=== PATIENT | female | born 1960 | race Caucasian/White ===

== ENCOUNTER → 2022-04-02 10:36 | Outpatient (CLI) | payer OTHER, SELFPAY ==
--- NOTE | ~2022-04-02 | MM_ITS ---
EXAMINATION: MM screening [place] BI w jayson HISTORY: Screening mammogram TECHNIQUE: Craniocaudal and mediolateral oblique 3-D tomosynthesis images were obtained and synthetic 2-D images were generated. CAD analysis was submitted and interpreted. COMPARISON: 07/22/2013 bilateral screening mammogram BREAST PARENCHYMAL COMPOSITION: There are scattered areas of fibroglandular density. FINDINGS: There is no evidence of suspicious mass, calcification, or architectural distortion to sugg est malignancy in either breast. There has been no suspicious interval change. IMPRESSION: 1. No mammographic evidence of malignancy. 2. Recommend routine screening mammography in one year. BI-RADS Category 1: Negative Reviewed, dictated and finalized at location A. 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
== END ==
PROVIDERS: PCP Family Medicine; Visit Provider Family Medicine
DX: Z12.31 Encounter for screening mammogram for malignant neoplasm of breast (principal)
CPT/HCPCS: 77063; 77067

== ENCOUNTER 2023-06-10 12:11 | Emergency (ER) | payer OTHER, SELFPAY ==
--- NOTE | ~2023-06-10 | CT_ITS ---
EXAMINATION: CT brain wo con DATE: 06/10/2023 13:02 INDICATION: Fall. TECHNIQUE: Computed tomography (CT) of the head was performed without intravenous contrast. The mA wa s adjusted according to patient size. Iterative reconstruction technique was employed. The dose-lengt h product was 605.33 mGy-cm. COMPARISON: None FINDINGS: There is no intracranial hemorrhage, acute infarction, or abnormal intracranial mass lesion . The ventricles are normal in size. The orbits are normal. There is mucosal thickening in the parana james sinuses. The mastoid air cells are normal. IMPRESSION: 1. Normal brain. Reviewed, dictated and finalized at location A. 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 Normal brain.
--- NOTE | ~2023-06-10 | XR_ITS ---
EXAMINATION: XR chest 2V DATE: 06/10/2023 13:08 INDICATION: Left chest pain. TECHNIQUE: Frontal and lateral views of the chest were obtained. COMPARISON: None. FINDINGS: There is no pneumonia, pleural effusion, or pneumothorax. The heart size is normal. IMPRESSION: 1. No acute cardiopulmonary disease. Reviewed, dictated and finalized at location A. ERN CLERK
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
[2023-06-10 12:13] VITALS: BP 152/76; PULSE 64; RESP 20; TEMP 36.3; O2SAT 100
--- NOTE | 2023-06-10 12:45 | ED.FALL ---
HPI - Fall General Chief Complaint: Fall Stated Complaint: Fall, hit head Time Seen by Provider: 06/10/23 12:21 History of Present Illness HPI Narrative: 63-year-old female presenting to the emergency department for evaluation after having a ground level fall. Patient reports he tripped over a mat at work causing her to strike her face and left-sided ribs. Patient denies any loss conscious. Patient did have some epistaxis afterwards. Related Data Allergies Allergy/AdvReac Type Severity Reaction Status Date / Time No Known Allergies Allergy Unverified 04/22/16 19:04 Review of Systems Review of Systems: All systems reviewed & are unremarkable except as noted in HPI and below Exam Narrative: APPEARANCE: Well appearing, no pain, no distress, well-nourished. HEAD: normocephalic, atraumatic. EYES: PERRLA/EOMI, conjunctivae clear. NOSE: Normal no drainage EARS:TMS clear with good light reflex. THROAT: Pharynx clear, no exudate. NECK: Supple. No adenopathy, no masses. RESPIRATORY: Airway patent, respirations nonlabored. Clear to auscultation bilaterally, no rales, rhonchi, wheezing. CARDIOVASCULAR: Regular rate and rhythm without murmurs rubs or gallops. ABDOMINAL: Soft, nontender, nondistended, normal bowel sounds MUSCULOSKELETAL: Left-sided chest wall tenderness to palpation without crepitus or ecchymosis NEURO: Alert. Cranial nerves II through XII intact. Good gait. Good coordination SKIN: Warm, dry. Normal Color Course Course Emergency Course: 63-year-old female presents to emergency department for evaluation after having a fall resulting in a nasal injury. Head CT and facial CT were negative for acute fractures, chest x-ray showed no evidence rib fractures. Patient was updated on treatment for rib contusions and she was also educated on reasons to return to the emergency department. All questions concerns were addressed patient was well-appearing at time of discharge. Vital Signs Vital signs: Vital Signs Temperature 97.3 F L 06/10/23 12:13 Pulse Rate 64 06/10/23 12:13 Respiratory Rate 20 06/10/23 12:13 Blood Pressure 152/76 H 06/10/23 12:13 Pulse Oximetry 100 06/10/23 12:13 Oxygen Delivery Room Air 06/10/23 12:13 Temperature 97.3 F L 06/10/23 12:13 Pulse Rate 64 06/10/23 12:13 Respiratory Rate 20 06/10/23 12:13 Blood Pressure 152/76 H 06/10/23 12:13 Pulse Oximetry 100 06/10/23 12:13 Oxygen Delivery Room Air 06/10/23 12:13 MDM - Fall Imaging Data Radiologist's impression: Impressions Head CT 06/10/23 13:03 IMPRESSION: 1. Normal brain. Face CT 06/10/23 13:11 IMPRESSION: 1. No fracture. Chest X-Ray 06/10/23 13:15 IMPRESSION: 1. No acute cardiopulmonary disease. Discharge Plan Discharge Clinical Impression: Contusion of nose, Contusion of rib Patient Disposition: Home, Self-Care Condition: Stable Instructions: Antibiotic Form, Rib Fracture (ED), Concussion (ED), Head Injury (ED), Contusion in Adults (ED) Additional Instructions: Tylenol and ibuprofen for pain control. Have close follow-up with your primary care physician. If you have any worsening symptoms then please call or return to the emergency department. Follow-up/Referrals: Julissa,Haley Hodges MD [Primary Care Provider] -
== END 2023-06-10 13:56 | disposition home or self-care (01) ==
PROVIDERS: Emergency Provider Emergency Medicine; PCP Family Medicine
DX: S00.33XA Contusion of nose, initial encounter (principal); S20.212A Contusion of left front wall of thorax, initial encounter; W01.0XXA Fall on same level from slipping, tripping and stumbling without subsequent striking against object, initial encounter
CPT/HCPCS: 70450; 70486; 71046; 99284

== ENCOUNTER 2024-05-03 10:58 | Emergency (ER) | payer OTHER, SELFPAY ==
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
[2024-05-03 11:09] VITALS: BP 128/76; PULSE 74; RESP 18; TEMP 36.4; O2SAT 100
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
[2024-05-03 13:59] VITALS: BP 130/72; PULSE 75; RESP 16; O2SAT 100
== END 2024-05-03 14:01 | disposition home or self-care (01) ==
PROVIDERS: Emergency Provider Student in an Organized Health Care Education/Training Program; PCP Family Medicine
DX: S62.613A Displaced fracture of proximal phalanx of left middle finger, initial encounter for closed fracture (principal); R07.89 Other chest pain; V49.20XA Unspecified car occupant injured in collision with unspecified motor vehicles in nontraffic accident, initial encounter
CPT/HCPCS: 29130; 71100; 73130; 99284

== ENCOUNTER 2024-05-11 10:17 | Outpatient (CLI) | payer OTHER, SELFPAY ==
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
== END 2024-05-11 10:18 | disposition home or self-care (01) ==
PROVIDERS: PCP Family Medicine; Visit Provider Orthopaedic Surgery
DX: S62.613A Displaced fracture of proximal phalanx of left middle finger, initial encounter for closed fracture (principal); X58.XXXA Exposure to other specified factors, initial encounter
CPT/HCPCS: 73130

== ENCOUNTER 2024-06-15 06:51 | Outpatient (CLI) | payer OTHER, SELFPAY ==
--- NOTE | ~2024-06-15 | XR_ITS ---
Left Hand Technique: PA, oblique, and lateral views were obtained. Clinical History: Fracture COMPARISON: 725 Findings: Oblique intra-articular fracture at the base of the third proximal phalanx is unchanged in alignment. No new fracture seen. Joint spaces are preserved. Soft tissues are unremarkable. Impression: Stable oblique, intra-articular, mildly displaced fracture of the ulnar aspect of the base of the thi rd proximal phalanx. Reviewed, dictated and finalized at location M. SFORMATION COACH Impression: Stable oblique, intra-articular, mildly displaced fracture of the ulnar aspect of the base of the third proximal phalanx.
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
--- OUTSIDE RECORDS SUMMARY | 2024-06-15 06:54 | XMS_ITS | Data Portability ---
Author Organization [place] - [facility] [employer], Main Office Address [address] [place] [address] Assessment No assessment recorded. Plan of Treatment Reminders Order Date Submit Date Provider Last Modified By Organization Details Last Modified Time Details Appointments None record ed. Lab None record ed. Referral None record ed. Procedures None record ed. Surgeries None record ed. Imaging None record ed. Medication Orders None record ed. Patient TargetsNo targets recorded. Patient InstructionsNo instructions recorded. Reason for Referral None Reported. Results Created Date Observation Date Name Description Value Unit Range Abnormal Flag Note LastModifiedBy Organization Detail LastModifiedTime 06/10/19 24 06/10/2023 CT, brain , w/o contr ast No observ ation record ed. [address], [address], 06/11/2023 10:46:11 06/10/19 24 06/10/2023 CT, face, w/o contr ast No observ ation record ed. [address], [address], 06/11/2023 10:45:45 06/10/19 24 06/10/2023 XR, chest No observ ation record ed. [email or web address] [address], [address], 06/11/2023 10:44:54 05/03/20 24 05/03/2024 imagi ng/di agnos tic resul t No observ ation record ed. [address], [address], 05/03/2024 14:26:14 05/03/20 24 05/03/2024 imagi ng/di agnos tic resul t No observ ation record ed. [address] [facility], [place], [address], 05/03/2024 14:30:26 05/12/19 25 05/11/2024 imagi ng/di agnos tic resul t No observ ation record ed. [address], [address], 05/12/2024 17:15:37 Result Notes None recorded. Problems Name Problem SNOMED Code Status Onset Date Resolution Date Notes Provider Name and Address Organization Details Recorded Time Seizure disorder 644518845 Active last 2011 Not Available [facility] 3 08:10:17 Plantar fasciitis 607841048 Active Not Available [facility] 3 08:10:17 Mass of thyroid gland 060299616 Active Not Available [facility] 3 08:10:18 Anemia 167545682 Active Not Available [facility] 3 08:10:18 Knee pain Active Not Available [facility] 3 08:10:18 Rib pain 994918719 Active 024 ARNIE Martinez [address] [facility], [facility] [address], [place], [address] , [facility] 4 14:57:00 Problem Notes None recorded. Procedures Surgical History None recorded. Imaging Results Imaging Date Name Status [facility]Modified [facility] Details LastModified Time 06/10/2023 CT, brain, w/o contrast completed [address], [address], 06/11/2023 10:46:11 06/10/2023 CT, face, w/o contrast completed [address], [address], 06/11/2023 10:45:45 06/10/2023 XR, chest completed [address] [place], [address], 06/11/2023 10:44:54 05/03/2024 imaging/diagn ostic result active [address], [place], [address], 05/03/2024 14:26:14 05/03/2024 imaging/diagn ostic result active [address], [place], [address], 05/03/2024 14:30:26 05/11/2024 imaging/diagn ostic result active [address], [place], [address], 05/12/2024 17:15:37 Procedure Notes None recorded. Medical Equipment None Reported. Allergies No known drug allergies Medications Name Sig Start Date Stop Date Status Note LastModified by Organization Details LastModified Time oxcarbazepi ne 150 mg tablet 07/13 completed Not Available Not Available Not Available azithromyci n 250 mg tablet TAKE 2 TABLETS BY MOUTH TODAY, THEN TAKE 1 TABLET DAILY FOR 4 DAYS 07/04 completed Not Available Not Available Not Available ondansetron HCl 8 mg tablet active Not Available Not Available Not Available prednisone 20 mg tablet TAKE 2 TABLETS BY MOUTH ONCE DAILY FOR 5 DAYS 07/04 completed Not Available Not Available Not Available cyanocobala min (vit B-12) 1,000 mcg tablet TAKE 1 TABLET BY MOUTH EVERY DAY active Not Available Not Available No t Available oxcarbazepi ne 300 mg tablet TAKE 1 TABLET BY MOUTH TWICE A DAY active Not Available Not Available No t Available Bentyl 20 mg tablet Take 1 tablet every 6 hours by oral route as needed. 07/13 completed Not Available Not Available Not Available zonisamide 100 mg capsule TAKE 4 CAPSULES BY MOUTH NIGHTLY. active Not Available Not Available No t Available lidocaine 1 %-epinephri ne 1:100,000 injection solution Take 2 mL by injection route. 07/04 completed Not Available Not Available Not Available amoxicillin 875 mg tablet 07/13 completed Not Available Not Available Not Available benzonatate 100 mg capsule TAKE 1 CAPSULE BY MOUTH EVERY 8 HOURS NEEDED 07/04 completed Not Available Not Available Not Available triamcinolo ne acetonide 40 mg/mL suspension for injection Take 40 mg every day by injection route for 1 day. 07/04 completed Not Available Not Available Not Available cyanocobala min (vit B-12) 1,000 mcg/mL injection solution Inject 1 mL every month by subcutane ous route. active Not Available Not Available No t Available diclofenac sodium 75 mg tablet,keke yed release TAKE 1 TABLET BY MOUTH TWICE DAILY NEEDED FOR PAIN 09/19 completed Not Available Not Available Not Available levetiracet am 750 mg tablet TAKE 2 TABLETS BY MOUTH TWICE A DAY active Not Available Not Available No t Available ergocalcife rol (vitamin D2) 1,250 mcg (50,000 unit) capsule PLEASE SEE ATTACHED FOR DETAILED DIRECTION S active Not Available Not Available No t Available ondansetron 4 mg disintegrat ing tablet TAKE 1 TABLET BY MOUTH EVERY 8 HOURS NEEDED FOR NAUSEA AND VOMITING 07/04 completed Not Available Not Available Not Available fluticasone propionate 50 mcg/actuati on nasal spray,suspe nsion 2 sprays each nostril qd active Not Available Not Available No t Available naproxen 500 mg tablet 07/13 completed Not Available Not Available Not Available chlorhexidi ne gluconate 0.12 % mouthwash 07/13 completed Not Available Not Available Not Available Fluzone Quad 6116-7523 60 mcg (15 mcg x 4)/0.5 mL IM suspension 09/19 completed Not Available Not Available Not Available Fluzone Quad (PF) 60 mcg (15 mcg x 4)/0.5 mL IM syringe [facility] 07/04 completed Not Available Not Available Not Available Vitals Date Recorded Oxygen saturation Oxygen saturation in Arterial blood by Pulse oximetry Heart rate Body temperature Body weight Systolic blood pressure Diastolic blood pressure Provider Name and Address Organization Details Last Updated DateTime 3 100 % 100 % 71 /min 97.9 [degF] 77763.4 1 g 122 mm[Hg] 70 mm[Hg] Not Available [facility] 3 08:08:09 Date Recorded Body weight Body temperature Heart rate Oxygen saturation Oxygen saturation in Arterial blood by Pulse oximetry Body mass index (BMI) Body height Systolic blood pressure Diastolic blood pressure Provider Name and Address Organization Details Last Updated DateTime 4 04739.4 5 g 98 [degF] 75 /min 99 % 99 % 25.1 kg/m2 165.1 cm 128 mm[Hg] 70 mm[Hg] Amisha Andrews RN [place] [facility] [place] [facility] 4 08:35:21 Social History None recorded. Functional Status None recorded. Mental Status None recorded. Family History Nothing Reported. Medical History No medical history recorded. Gynecological HistoryNo gynecological history recorded. Obstetrics History GPAL:G 0 P 0 0 0 0 Immunizations Vaccine Type Date Status Note Provider Nam e and Address Organization Details Recorded Time Influenza, split virus, quadrivalent, preservative 9 completed Not Available [facility] 07/10/2022 08:15:11 Influenza, split virus, trivalent, PF 3 completed Not Available [facility] 07/10/2022 08:15:11 Past Encounters Encounter ID Performer Location Encounter Start Date Encounter Closed Date Diagnosis/Indication Diagnosis SNOMED-CT Code Diagnosis ICD10 Code Diagnosis Note [id number] [facility] Primary Care [address] [place] [address] 07/04/2022 00:00:00 07/08/2022 20:34:23 [id number] ARNIE Martinez [facility] Care [address] [place] [address] 07/03/2023 08:25:07 07/03/2023 09:08:19 Rib pain 003385656 R07.81 -Pt had a fall at work on 06-10-she believes her head hit the table, she twisted her body, and fell back and hit the floor-she was evaluated later that day in the ER, imaging performed, no abnormalit ies-Rib pain rated at 4/10 now, no use of medication s otc-ROM and strength remain intact-she has been working without restrictio ns-was encouraged to f/u with her PCP-no further treatment needed-she will notify our office of the claim number when she gets it Health Concerns Section Related Observation LastModified by Organization Detai ls LastModified Time None Recorded Concern Status LastModified by Organization Details LastModified Time None Recorded Advance Directives Directive None Recorded Payers Encounter Date Sequence Insurance Name Policy Number Policy Bradford Covered Member ID Bradford Member ID Guarantor Name 07/03/2023 1 [facility] [id number] Marly Morris Johann [id number] Marly Wills Notes Date Note Type Note Provider Name and Address Organization Details Recorded Time 07/03/2023 text/html Pt was recently in the ER for a fall at work ARNIE Martinez [address] [facility], [facility] [address], [place], [address], [facility] 09/16/2023 14:57:37 OBGyn Episode No OBEpisode recorded.
--- OUTSIDE RECORDS SUMMARY | 2024-06-15 06:54 | XMS_ITS | Clinical Summary ---
Author Organization [facility] [employer] Address [address] [place] [address] Care Team Providers Care Weighing Station Operator Name Role Phone Unavailable Primary Care Provider Unavailabl e Source Comments [facility],non-owned Affiliates and Associated Physician Practices is amultiple site organization consisting of ambulatory clinics and hospital sitesin [place], [place], [place] and [place]. This disclosure is being madepursuant to the Care Everywhere program and may not contain all information available regarding this patient. Last updated 18.[facility] Allergies No known active allergies Medications * Be aware that medications may not be up to date on this document. Alwaysverify current medications with the patient. Medication Sig Dispensed Refills Start Date End Date Status OXcarbazepine (TRILEPTAL) 300 MG tablet Take 300 mg by mouth 2 times daily Active levETIRAcetam (KEPPRA) 750 MG tablet Take 750 mg by mouth 2 times daily Active zonisamide (ZONEGRAN) 100 MG capsule Take 100 mg by mouth once daily Active Family History Relation Name Status Comments Father Mother Alive Social History Tobacco Use Types Packs/Day Years Used Date Smoking Tobacco: Never Smokeless Tobacco: Never Sex and Gender Information Value Date Recorded Sex Assigned at Not on file Gender Identity Not on file Sexual Orientation Not on file Last Filed Vital Signs Vital Sign Reading Time Taken Comments Blood Pressure 110/68 04/27/2017 2:00 PM PLATING DEPARTMENT HELPER Pulse 95 04/27/2017 2:00 PM PLATING DEPARTMENT HELPER Temperature 37.5 ??C (99.5 ??F) 04/27/2017 2:00 PM CS T Respiratory Rate 16 04/27/2017 2:00 PM PLATING DEPARTMENT HELPER Oxygen Saturation 98% 04/27/2017 2:00 PM PLATING DEPARTMENT HELPER Inhaled Oxygen Concentration - - Weight 70.8 kg (156 lb) 04/27/2017 2:00 PM PLATING DEPARTMENT HELPER Height 170.2 cm (5' 7 ) 04/27/2017 2:00 PM PLATING DEPARTMENT HELPER Body Mass Index 24.43 04/27/2017 2:00 PM PLATING DEPARTMENT HELPER Plan of Treatment Health Maintenance Due Date Last Done Comments COLOGUARD (AGES 45-75) - COL ON CA SCREENING 1960 COLON MONITORING 1960 COLONOSCOPY - COLON CA SCREENING 1960 CT COLONOGRAPHY - COLON CA SCREENING 1960 Colorectal Cancer Screening 1960 FIT - COLON CA SCREENING 1960 FLEX SIG - COLON CA SCREENING 1960 LIPID TESTING 1960 MAMMOGRAM 1960 PAP SMEAR 1960 HIV SCREENING 1975 HEPATITIS C SCREENING 03/03/1978 DTAP/TDAP/TD VACCINES (1 - Tdap) 1979 PNEUMOCOCCAL VACCINE 50+ (1 of 1 - PCV) 2010 ZOSTER VACCINE (1 of 2) 2010 COVID-19 VACCINE (1 - 2023-2 5 season) 2024 INFLUENZA VACCINE (#1) 2024 DEPRESSION SCREENING 05/12/2024 Respiratory Syncytial Virus (RSV) Vaccine Pt: or over 60 yrs (1 - 1-dose 75+ series) 2035 HEPATITIS B VACCINE Aged Out No longe r eligible based on patient's age to complete this topic HIB VACCINE Aged Out No longer eligi ble based on patient's age to complete this topic HPV VACCINE Aged Out No longer eligi ble based on patient's age to complete this topic MENINGOCOCCAL (Group B) VACCINE Aged Out No longer eligible based on patient's age to complete this topic MENINGOCOCCAL VACCINE Aged Out No sandra ankit eligible based on patient's age to complete this topic PNEUMOCOCCAL VACCINE Aged Out No long er eligible based on patient's age to complete this topic
--- OUTSIDE RECORDS SUMMARY | 2024-06-15 06:54 | XMS_ITS | Clinical Summary ---
Author Organization [facility] Address [address] [place] [place] [address] Care Team Providers Care Team Cdl Driver Name Role Phone Unavailable Primary Care Provider Unavailabl e Social History Tobacco Use Types Packs/Day Years Used Date Smoking Tobacco: Never Assessed Comments Unknown Sex and Gender Information Value Date Recorded Sex Assigned at Not on file Legal Sex Female 5:12 PM CLIP AND HANGER ATTACHER Gender Identity Not on file Sexual Orientation Not on file Plan of Treatment Health Maintenance Due Date Last Done Comments Hepatitis C Virus (HCV) Screening 1960 TdaP Immunization 1960 Pap Smear 1981 Cervical Cancer Screening (CCS) 1990 HPV/Cotest 1990 Colonoscopy 2005 Colorectal Cancer Screening 2005 Cologuard 2010 Immunochemical Fecal Occult Blood 2010 Mammogram 2010 Pneumococcal Immunization (50+ years) (1 of 1 - PCV) 2010 Zoster Immunization (2 of 2) 01/30/2021 12/05/2020 Influenza Immunization (#1) 2024 09/2 12/2020, 03/20/2017, 02/04/2015, Additional history exists SARS-COV-2 Immunization ( season) 2024 03/13/2021, 08/27/2020, 08/06/2020 Respiratory Syncytial Virus (RSV) Immunization (Adult) (1 - 1-dose 75+ series) 2035 Hepatitis B Immunization Aged Out No longer eligible based on patient's age to complete this topic Meningococcal Immunization (ACWY) Aged Out No longer eligible based on patient's age to complete this topic Pneumococcal Immunization Combined Aged Out No longer eligible based on patient's age to complete this topic Rotavirus Immunization Aged Out No lo nger eligible based on patient's age to complete this topic
--- OUTSIDE RECORDS SUMMARY | 2024-06-15 06:54 | XMS_ITS | Patient Health Summary ---
Author Organization [facility] Address [address] [place] [address] Care Team Providers Care Supervisor [employer] Name Role Phone Unavailable Primary Care Provider Unavailabl e Note from [facility],non-owned Affiliates and Associated Physician Practices is amultiple site organization consisting of ambulatory clinics and hospital sitesin [place], [place], [place] and [place]. This disclosure is being madepursuant to the Care Everywhere program and may not contain all information available regarding this patient. Last updated 18.[facility] Allergies No known active allergies Medications * Be aware that medications may not be up to date on this document. Alwaysverify current medications with the patient. * OXcarbazepine (TRILEPTAL) 300 MG tablet Take 300 mg by mouth 2 times daily * levETIRAcetam (KEPPRA) 750 MG tablet Take 750 mg by mouth 2 times daily * zonisamide (ZONEGRAN) 100 MG capsule Take 100 mg by mouth once daily Social History Tobacco Use Types Packs/Day Years Used Date Smoking Tobacco: Never Smokeless Tobacco: Never Sex and Gender Information Value Date Recorded Sex Assigned at Not on file Gender Identity Not on file Sexual Orientation Not on file Last Filed Vital Signs Vital Sign Reading Time Taken Comments Blood Pressure 110/68 04/27/2017 2:00 PM DIRECTOR OF INTERCOLLEGIATE ATHLETICS Pulse 95 04/27/2017 2:00 PM DIRECTOR OF INTERCOLLEGIATE ATHLETICS Temperature 37.5 ??C (99.5 ??F) 04/27/2017 2:00 PM CS T Respiratory Rate 16 04/27/2017 2:00 PM DIRECTOR OF INTERCOLLEGIATE ATHLETICS Oxygen Saturation 98% 04/27/2017 2:00 PM DIRECTOR OF INTERCOLLEGIATE ATHLETICS Inhaled Oxygen Concentration - - Weight 70.8 kg (156 lb) 04/27/2017 2:00 PM DIRECTOR OF INTERCOLLEGIATE ATHLETICS Height 170.2 cm (5' 7 ) 04/27/2017 2:00 PM DIRECTOR OF INTERCOLLEGIATE ATHLETICS Body Mass Index 24.43 04/27/2017 2:00 PM DIRECTOR OF INTERCOLLEGIATE ATHLETICS Procedures * INFLUENZA A+B - POINT OF CARE (AMB)(Performed 04/27/2017) Performed for Influenza A * STREP A SCREEN - POINT OF CARE (AMB) STL(Performed 04/27/2017) Performed for Influenza A Results * (ABNORMAL) INFLUENZA A+B - POINT OF CARE (AMB) (04/27/2017 2:15 PM DIRECTOR OF INTERCOLLEGIATE ATHLETICS) Influenza A Antigen Rapid Positive(A) Negative Influenza B Antigen Rapid Negative Negative Influenza Internal Control present NEGATIVE - POSITIVE Influenza Lot Number [id number] Influenza Expiration Date 07 09 2018 Other NASOPHARYNGEAL SWAB / Unknown 04/27/2017 2:15 PM DIRECTOR OF INTERCOLLEGIATE ATHLETICS Caroline Vazquez APRN-VICE PRESIDENT [employer] - POINT OF CA RE ORDERABLES * (ABNORMAL) STREP A SCREEN (04/27/2017 2:14 PM DIRECTOR OF INTERCOLLEGIATE ATHLETICS) Strep A Rapid POCT Positive(A) Negative Strep A Internal Control Present Lot # [id number] Expiration Date 07 09 2018 Throat ENTIRE THROAT (SURFACE REGION OF NECK) / Unknown 04/27/2017 2:14 PM DIRECTOR OF INTERCOLLEGIATE ATHLETICS Caroline Vazquez APRN-VICE PRESIDENT SUPPLY CHAIN LAB - POINT OF CA RE ORDERABLES
--- OUTSIDE RECORDS SUMMARY | 2024-06-15 06:54 | XMS_ITS | Referral Summary ---
Author Organization [facility] Address [address] [place] [address] Care Team Providers Care Real Estate Consultant Name Role Phone Unavailable Primary Care Provider Unavailabl e Source Comments [facility],non-owned Affiliates and Associated Physician Practices is amultiple site organization consisting of ambulatory clinics and hospital sitesin [place], [place], [place] and [place]. This disclosure is being madepursuant to the Care Everywhere program and may not contain all information available regarding this patient. Last updated 18.[email or web address] Allergies No known active allergies Medications * [...] 100 mg by mouth once daily Active Social History Tobacco Use Types Packs/Day Years Used Date Smoking Tobacco: Never Smokeless Tobacco: Never Sex and Gender Information Value Date Recorded Sex Assigned at Not on file Gender Identity Not on file Sexual Orientation Not on file Last Filed Vital Signs Vital Sign Reading Time Taken Comments Blood Pressure 110/68 04/27/2017 2:00 PM BESSEMER BOTTOM MAKER Pulse 95 04/27/2017 2:00 PM BESSEMER BOTTOM MAKER Temperature 37.5 ??C (99.5 ??F) 04/27/2017 2:00 PM CS T Respiratory Rate 16 04/27/2017 2:00 PM BESSEMER BOTTOM MAKER Oxygen Saturation 98% 04/27/2017 2:00 PM BESSEMER BOTTOM MAKER Inhaled Oxygen Concentration - - Weight 70.8 kg (156 lb) 04/27/2017 2:00 PM BESSEMER BOTTOM MAKER Height 170.2 cm (5' 7 ) 04/27/2017 2:00 PM BESSEMER BOTTOM MAKER Body Mass Index 24.43 04/27/2017 2:00 PM BESSEMER BOTTOM MAKER Plan of Treatment Not on file
--- OUTSIDE RECORDS SUMMARY | 2024-06-15 06:54 | XMS_ITS | Referral Summary ---
Author Organization [facility] Address [address] [place] [address] Care Team Providers Care Knitted Goods Shaper Name Role Phone Haley Costa MD Primary [...] ordered. Assessment & Plan (05/16/2022 5:41 PM MULTIMEDIA EDUCATIONAL SPECIALIST): Bouts of vertigo since February 28, 2022. [...] COVID-19. Assessment & Plan (05/16/2022 5:41 PM MULTIMEDIA EDUCATIONAL SPECIALIST): SARS-CoV-2 RNA PCR positive 05/07/21 Sore throat, [...] sleep. Assessment & Plan (05/16/2022 5:41 PM MULTIMEDIA EDUCATIONAL SPECIALIST): Plus partial seizures Oxcarbazepine 300 mg twice [...] sleep COVID-19 pandemic discussed. Waiting clarification from [facility] regarding booster vaccinations. Assessment & Plan (02/01/2020 [...] Free, Intramuscular 03/04/2013 ZOSTER Recombinant 03/27/2022,07/23/2021, 021 Social History Tobacco Use Types Packs/Day Years [...] on file Legal Sex Female 1:19 AM MULTIMEDIA EDUCATIONAL SPECIALIST Gender Identity Not on file Sexual Orientation [...] 03/05/2024 2:00 PM CDT Plan of Treatment Not on file [facility] H[facility]/PPO Address: [address] [place] [address] Care Teams Knitted Goods Shaper Relationship Specialty Start Date End Date Haley Costa MD [address] [place] [address] [place] [address] PCP - General Family Medicine 12/12/21
== END 2024-06-15 06:52 | disposition home or self-care (01) ==
PROVIDERS: PCP Family Medicine; Visit Provider Orthopaedic Surgery
DX: S62.613A Displaced fracture of proximal phalanx of left middle finger, initial encounter for closed fracture (principal); X58.XXXA Exposure to other specified factors, initial encounter
CPT/HCPCS: 73130

== ENCOUNTER 2024-11-17 01:12 | Day surgery (SDC) | payer OTHER, SELFPAY ==
[2024-11-10 08:15] VITALS: BMI 27.5
--- NOTE | 2024-11-10 08:21 | PC.NURSE ---
Report to the Outpatient Waiting Room, entrance under the green pavilion located off [facility], at time _0600_ on date _[id number]_. Planned Procedure Time: _0730_.? Time changes happen often and if your time is changed the preop area will call you the afternoon before. - You and your visitor will be asked to self-screen and do not enter if you have any COVID symptoms. Please call surgeon if you need to reschedule. - A mask is optional within the hospital at this time. Patients may have clear liquids (water, carbonated beverages, clear teas, apple juice) until 3 hours prior to surgery with a maximum of 20 ounces. - No food from midnight until time of surgery and no smoking, or chewing tobacco (or any form of nicotine). No chewing gum, candy or mints. Take only the following medications with a SIP of water on the morning of surgery: __Levetirecetam and Oxcarbazepine DO NOT STOP ANY OF YOUR OTHER PRESCRIPTION MEDICATIONS PRIOR TO SURGERY EXCEPT THE FOLLOWING Hold all vitamins and supplements for 3 days per anesthesiologist. Stop 10-15-2024 Medications to discontinue per physician ___Ibuprofen Date to take last oikw___[phone] Please no make-up, nail occitan, hairspray, perfume, deodorant, or body powder the day of surgery.? No jewelry (including any body piercings) or valuables the day of surgery, leave them at home.? Please take a shower or bath the night before, or the morning of, surgery with an antibacterial soap.? Wear comfortable, loose fitting clothing.? - Jewelry must be removed prior to entering the operating room.? Rings and piercings that are not removed may be cut off. - The hospital will not accept responsibility for valuables.? - Please leave all valuables, including medications, at home the day of surgery. If you are going home after surgery, a licensed front load trash truck driver must drive you home.? - NO public transportation without another adult if you receive anesthesia. - We recommend that an adult stay with you for 24 hours following discharge. - We also recommend that you do not drive, make important decision, drink alcoholic beverages, or take any drugs that were not prescribed by your health care provider for at least 24 hours after your discharge time. Follow any additional instructions given to you from your surgeon. Telephone instructions given to __Rigoberto___and asked if any additional questions and then verbalized understanding. Patient advised to call surgeon office or pre surgery nurse liaison [phone] if any additional questions.
--- NOTE | 2024-11-16 07:01 | P.HP_ITS ---
H&P: HPI History of Present Illness Date/Time: 11/16/24 07:01 Chief Complaint: Patient is catching and locking LEFT 3rd finger. She has a trigger finger. Unfortunately it has been unresponsive to conservative treatment like she would like to consider surgical release. Review of Systems Musculoskeletal: Musculoskeletal: Reports arthralgias, Reports joint swelling and Reports stiffness PMFSH Past Medical History Medical History History of seizure Social History Social History (Updated 10/21/24 @ 07:33 by Stacey Morris [facility]) Smoking status: Never smoker Alcohol intake: never Substance use: never Do You Feel Safe in your Home?: Yes Lack of Transportation: No Lack of Food: Never True Current Housing: I Have Housing Concerned About Future Housing: No Difficulty Paying Gas/Electric Bills: No Difficulty Paying for Meds: No Currently Unemployed: No Education: High School Diploma/GED Difficulty w/ Childcare or Family Care: No Living arrangements: with family Spiritual care concerns: No Meds Home Medications and Allergies Home Medications ?Medication ?Instructions ?Recorded ?Confirmed ?Type acetaminophen 500 mg tablet 1,000 mg (2 x 500 mg) PO TID PRN 05/03/24 11/10/24 Rx (Tylenol Extra Strength) pain #30 tabs ibuprofen 800 mg tablet 800 mg PO TID PRN pain #30 tabs 05/03/24 11/10/24 Rx ergocalciferol (vitamin D2) 1,250 1,250 mcg PO WEEKLY 05/11/24 11/10/24 History mcg (50,000 unit) capsule levetiracetam 750 mg tablet 1,500 mg PO Q12H 05/11/24 11/10/24 History mecobalamin (vitamin B12) 1,000 1,000 mcg PO DAILY 05/11/24 11/10/24 History mcg lozenges zonisamide 100 mg capsule 100 mg PO DAILY 05/11/24 11/10/24 History oxcarbazepine 300 mg tablet 300 mg PO BID 05/18/24 11/10/24 History Allergies Allergy/AdvReac Type Severity Reaction Status Date / Time No Known Allergies Allergy Unverified 11/10/24 08:12 Exam Narrative: On exam she has got triggering her LEFT 3rd finger. It locks occasionally. She has a palpable nodule in the area. Neurologically she is intact. She has pain to any palpation. Eyes: General: appearance normal, both eyes and all related structures Neck: Neck: supple Resp: Effort & Inspection: normal respiratory effort Cardio: Rate: regular rate Rhythm: regular rhythm Assessment and Plan Assessment and plan (1) Trigger finger, left middle finger: Code(s): M65.332 - Trigger finger, left middle finger Status: Acute Assessment and Plan: Patient has a trigger finger left 3rd. She has failed conservative treatment I would like to consider surgical release. I discussed the risks, benefits, limitations, and alternatives of the procedure in detail. She would like to proceed will proceed per her request.
--- OUTSIDE RECORDS SUMMARY | 2024-11-17 01:17 | XMS_ITS | Clinical Summary ---
Author Organization [facility] Building B Address [address] [place] [address] Care Team Providers Care Criminal Justice Department Chair Name Role Phone Haley Costa MD Primary Care Provider + Allergies No known active allergies Medications ondansetron ODT (ZOFRAN-ODT) 4 mg disintegrating tabletIndications:N ausea and vomiting, unspecified vomiting type Take 1 tablet (4 mg total) by mouth every 8 (eight) hours as needed for nausea or vomiting 10 tablet 2 Active cyanocobalamin (Vitamin B-12) 1,000 mcg tablet Take 1 tablet (1,000 mcg total) by mouth daily 3 Active ergocalciferol (VITAMIN D) 50,000 unit capsuleIndications: Vitamin D Deficiency Take 1 capsule (50,000 Units total) by mouth once a week For 8 weeks, then take OTC D3 5,000 units (125 mcg) daily. 8 capsule 3 Active cyclobenzaprine (FLEXERIL) 10 mg tablet Take 1 tablet (10 mg total) by mouth every 8 (eight) hours as needed for muscle spasms 4 Active azithromycin (ZITHROMAX) 250 mg tabletIndications:L ower respiratory infection (e.g., bronchitis, pneumonia, pneumonitis, pulmonitis) Take 2 tablets the first day, then 1 tablet daily for 4 days. 6 tablet 4 Active benzonatate (TESSALON) 200 mg capsuleIndications: Lower respiratory infection (e.g., bronchitis, pneumonia, pneumonitis, pulmonitis) Take 1 capsule (200 mg total) by mouth 3 (three) times a day as needed for cough 30 capsule 4 Active OXcarbazepine (TRILEPTAL) 300 mg tablet TAKE 1 TABLET BY MOUTH TWICE A DAY 60 tablet 5 5 Active levETIRAcetam (KEPPRA) 750 mg tablet TAKE 2 TABLETS BY MOUTH TWICE A DAY 120 tablet 5 5 Active zonisamide (ZONEGRAN) 100 mg capsule TAKE 4 CAPSULES BY MOUTH NIGHTLY. 120 capsule 5 5 Active Active Problems Problem Noted Date Diagnosed Date [...] ordered. Assessment & Plan (05/16/2022 5:41 PM MATE CHIEF): Bouts of vertigo since February 28, 2022. [...] COVID-19. Assessment & Plan (05/16/2022 5:41 PM MATE CHIEF): SARS-CoV-2 RNA PCR positive 05/07/21 Sore throat, [...] sleep. Assessment & Plan (05/16/2022 5:41 PM MATE CHIEF): Plus partial seizures Oxcarbazepine 300 mg twice [...] sleep COVID-19 pandemic discussed. Waiting clarification from [facility] regarding booster vaccinations. Assessment & Plan (02/01/2020 [...] History of lumbosacral radiculopathy Adequate hydration Immunizations Immunization Administration Dates Next Due Influenza, Quadrivalent, Riya [...] on file Legal Sex Female 1:19 AM MATE CHIEF Gender Identity Not on file Sexual Orientation Not on file Obstetrics History Last Filed Vital Signs Vital Sign Reading Time Taken Comments Blood Pressure 124/73 03/05/2024 2:00 PM CDT Pulse 76 03/05/2024 2:00 PM CDT Temperature 36.8 C (98.2 F) 03/05/2024 2:00 PM CDT Respiratory Rate 20 03/05/2024 2:00 PM CDT Oxygen Saturation 97% 03/05/2024 2:00 PM CDT Inhaled Oxygen Concentration - - Weight 69.9 kg (154 lb) 03/05/2024 2:00 PM CDT Height 165.1 cm (5' 5) 03/05/2024 2:00 PM CDT Body Mass Index [...] 03/13/2021, 08/27/2020, Additional history exists Influenza Vaccine (Season Ended) 2025 02/27/2022, 02/26/2022, 02/06/2021, Additional history exists Zoster Vaccine Completed 03/27/2022, 07/10, 12/05/2020 Pneumococcal vaccine <65 Aged Out No longer eligible based on patient's age to complete this topic Insurance [facility] OPEN ACCESS [facility] CHOICE PLUS [facility] OPEN ACCESS Care Teams Criminal Justice Department Chair Relationship Specialty Start Date End Date Haley Costa MD [address] [place] [address] [address] [place] [id number] PCP - General Family Medicine 12/12/21
--- OUTSIDE RECORDS SUMMARY | 2024-11-17 01:17 | XMS_ITS | Clinical Summary ---
Author Organization [facility] Address [address] [place] [address] Care Team Providers Care Outsole Paraffiner Name Role Phone Unavailable Primary Care Provider Unavailabl e Source Comments [facility],non-owned Affiliates and Associated Physician Practices is amultiple site organization consisting of ambulatory clinics and hospital sitesin [place], [place], [place] and [place]. This disclosure is being madepursuant to the Care Everywhere program and may not contain all information available regarding this patient. Last updated 18.[employer] Allergies No known active allergies Medications * Be aware that medications may not be up to date on this document. Alwaysverify current medications with the patient. OXcarbazepine (TRILEPTAL) 300 MG tablet Take 300 [...] Date Smoking Tobacco: Never Smokeless Tobacco: Never Comments No Sex and Gender Information Value Date Recorded Sex Assigned at Not on file Legal Sex Female 1:43 PM VALIDATION TECHNICIAN Gender Identity Not on file Sexual Orientation Not on file Last Filed Vital Signs Vital Sign Reading Time Taken Comments Blood Pressure 110/68 04/27/2017 2:00 PM VALIDATION TECHNICIAN Pulse 95 04/27/2017 2:00 PM VALIDATION TECHNICIAN Temperature 37.5 C (99.5 F) 04/27/2017 2:00 PM VALIDATION TECHNICIAN Respiratory Rate 16 04/27/2017 2:00 PM VALIDATION TECHNICIAN Oxygen Saturation 98% 04/27/2017 2:00 PM VALIDATION TECHNICIAN Inhaled Oxygen Concentration - - Weight 70.8 kg (156 lb) 04/27/2017 2:00 PM VALIDATION TECHNICIAN Height 170.2 cm (5' 7) 04/27/2017 2:00 PM VALIDATION TECHNICIAN Body Mass Index 24.43 04/27/2017 2:00 PM VALIDATION TECHNICIAN Plan of Treatment Health Maintenance Due Date Last Done Comments COLOGUARD (AGES 45-75) - COL ON CA SCREENING 1960 COLON MONITORING 1960 COLONOSCOPY - COLON CA SCREENING 1960 CT COLONOGRAPHY - COLON CA SCREENING 1960 Colorectal Cancer Screening 1960 FIT - COLON CA SCREENING 1960 FLEX SIG - COLON CA SCREENING 1960 LIPID TESTING 1960 MAMMOGRAM 1960 HIV SCREENING 1975 HEPATITIS C SCREENING 03/03/1978 DTAP/TDAP/TD VACCINES (1 - Tdap) 1979 PNEUMOCOCCAL VACCINE 50+ (1 of 1 - PCV) 2010 ZOSTER VACCINE (1 of 2) 2010 COVID-19 VACCINE (1 - 2023-2 5 season) 2024 DEPRESSION SCREENING 05/12/2024 INFLUENZA VACCINE (Season Ended) 2025 Respiratory Syncytial Virus (RSV) Vaccine Pt: or [...] to complete this topic MENINGOCOCCAL (Group B) VACC INE SHARED DECISION-MAKING Aged Out No longer eligibl e based on patient's age to complete this topic MENINGOCOCCAL GROUPS A/C/Y/W VACCINE Aged Out No longer eligible b ased on patient's age to complete this topic Insurance [employer]
--- OUTSIDE RECORDS SUMMARY | 2024-11-17 01:17 | XMS_ITS | Continuity of Care Document ---
Author Organization [facility] Address [address] [place] [address] Phone Care Team Providers Care Geospatial Technician Name Role Phone Buster PT, MIRTAT, David Unavailable Unavailable Procedures Procedure Date Neuromuscular Re-Ed Therapeutic Activities Therapeutic Activities Neuromuscular Re-Ed Therapeutic Activities Neuromuscular Re-Ed Neuromuscular Re-Ed Therapeutic Activities Neuromuscular Re-Ed Therapeutic Activities PT Evaluation Moderate Complexity Advance Directives Directive Yes / No Effective Date File Name No Information Encounters Encounter Description Practice Location Reason(s) For Visit Diagnoses Date Provider Providers Copied on Encounter [facility] [address] [place] [address], [id number], tel:[phone] [place] No Information 2 Buster Hernandez. . Referring Provider: Carlyn Crawford , [address] [place] [address], [address]. tel:[phone], [id number], tel:[phone] [place] No Information 2 Buster Hernandez. . Referring Provider: Carlyn Crawford , [address] [place], [address]. tel:[phone] [place] [address], [place], [place], [id number], tel:[phone] [place] No Information 2 [place], [place], . Referring Provider: Carlyn Crawford , [address] [place] [address], [address]. tel:[phone] [facility] [address], [id number], tel:[phone] [place] No Information 2 Buster Hernandez. . Referring Provider: Carlyn Crawford , [address] [place] [address], [address]. tel:[phone] [facility] [address], [id number], tel:[phone] [place] No Information 2 Buster Hernandez. . Referring Provider: Carlyn Crawford , [address] [place] [address], [address]. tel:[phone] Family History Family Member Type Diagnosis Age At Onset No Information Payers Payer name Insurance type Covered alliance party ID Angelito villasenor(amarilis Nunez [id number] Social History Type Description Quantity Date Captured Comments Sex Female Smoking Status No Information Chief Complaint And Reason For Visit No Information Reason For Referral Reason For Referral No Information History Of Present Illness Encounter Date Complaint History Of Prese nt Illness No Information Functional Status Date Functional Assessmen t No Information Instructions Date Instruction Additional Infor mation Giving encouragement to exercise Related to Overweight Giving encouragement to exercise Related to Overweight Giving encouragement to exercise Related to Overweight Giving encouragement to exercise Related to Overweight Assessments Type Assessment Date No Information Patient Care Teams Name Effective Dates (start - stop) Status Members No Information
--- OUTSIDE RECORDS SUMMARY | 2024-11-17 01:17 | XMS_ITS | Referral Summary ---
Author Organization [facility] Building B Address [address] [place] [address] Care Team Providers Care Director Of Integrated Marketing Name Role Phone Haley Costa MD Primary [...] ordered. Assessment & Plan (05/16/2022 5:41 PM FRUIT CULLER): Bouts of vertigo since February 28, 2022. [...] COVID-19. Assessment & Plan (05/16/2022 5:41 PM FRUIT CULLER): SARS-CoV-2 RNA PCR positive 05/07/21 Sore throat, [...] sleep. Assessment & Plan (05/16/2022 5:41 PM FRUIT CULLER): Plus partial seizures Oxcarbazepine 300 mg twice [...] sleep COVID-19 pandemic discussed. Waiting clarification from [facility] regarding booster vaccinations. Assessment & Plan [...] on file Legal Sex Female 1:19 AM FRUIT CULLER Gender Identity Not on file Sexual Orientation [...] Plan of Treatment Not on file Insurance [facility] OPEN ACCESS [facility] CHOICE PLUS [facility] Care Teams Director Of Integrated Marketing Relationship Specialty Start Date End Date Haley Costa MD [address] [place] [address] [place] [address] PCP - General Family Medicine 12/12/21
--- OUTSIDE RECORDS SUMMARY | 2024-11-17 01:17 | XMS_ITS | Clinical Summary ---
Author Organization [facility] Address [address] [place] [address] Care Team Providers Care Content Designer Name Role Phone Unavailable Primary Care Provider Unavailabl e Social History Tobacco Use Types Packs/Day Years Used Date Smoking Tobacco: Never Assessed Comments Unknown Sex and Gender Information Value Date Recorded Sex Assigned at Not on file Legal Sex Female 5:12 PM TRAFFIC OPERATIONS ENGINEER Gender Identity Not on file Sexual Orientation [...]
--- OUTSIDE RECORDS SUMMARY | 2024-11-17 01:17 | XMS_ITS | Data Portability ---
Author Organization [facility] [email or web address], Main Office Address [address] [place] [address] Assessment No assessment recorded. Plan of Treatment [...] contr ast No observ ation record ed. [email or web address] [address], [address], 06/11/2023 10:46:11 06/10/19 24 06/10/2023 CT, face, w/o contr ast No observ ation record ed. [address], [address], 06/11/2023 10:45:45 06/10/19 24 06/10/2023 XR, chest No observ ation record ed. [address], [address], 06/11/2023 10:44:54 05/03/20 24 05/03/2024 imagi ng/di agnos tic resul t No observ ation record ed. [address], [address], 05/03/2024 14:26:14 05/03/20 24 05/03/2024 imagi ng/di agnos tic resul t No observ ation record ed. [address], [place], [address], 05/03/2024 14:30:26 05/12/19 25 05/11/2024 imagi ng/di agnos tic resul t No observ ation record ed. [address], [place], [address], 05/12/2024 17:15:37 06/15/19 25 06/15/2024 imagi ng/di agnos tic resul t No observ ation record ed. [address], [place], [address], 06/15/2024 11:21:04 Result Notes None recorded. Problems Name Problem SNOMED Code Status Onset Date Resolution Date Notes Provider Name and Address Organization Details Recorded Time Seizure disorder 524114647 Active last 2011 Not Available [facility] 3 08:10:17 Plantar fasciitis 968796911 Active Not Available [facility] 3 08:10:17 Mass of thyroid gland 620064523 Active Not Available [facility] 3 08:10:18 Anemia 837855299 Active Not Available [facility] 3 08:10:18 Knee pain Active Not Available [facility] 3 08:10:18 Rib pain 958299530 Active 024 ARNIE Martinez [address], [place], [address] , [facility] 4 14:57:00 Problem Notes None recorded. Medical Equipment None Reported. [...] Available Not Available Not Available Fluzone Quad 60 mcg (15 mcg x 4)/0.5 mL IM suspension 09/19 completed Not Available Not Available Not Available Fluzone Quad (PF) 60 mcg (15 mcg x 4)/0.5 mL IM syringe [facility] 07/04 completed Not Available Not Available Not Available Vitals Date Recorded Body weight Body temperature Heart rate Oxygen saturation Oxygen saturation in Arterial blood by Pulse oximetry Body mass index (BMI) Body height Systolic And Diastolic Provider Name and Address Organization Details Last Updated DateTime 4 83483.4 5 g 98 [degF] 75 /min 99 % 99 % 25.1 kg/m2 165.1 cm 128/70 mm[Hg] Amisha Andrews RN [place] - [facility] [employer] [facility] 4 08:35:21 Date Recorded Oxygen saturation Oxygen saturation in Arterial blood by Pulse oximetry Heart rate Body temperature Body weight Systolic And Diastolic Provider Name and Address Organization Details Last Updated DateTime 3 100 % 100 % 71 /min 97.9 [degF] 18754.4 1 g 122/70 mm[Hg] Not Available [facility] 3 08:08:09 Social History None recorded. Functional Status None recorded. Mental Status None recorded. Family History Nothing Reported. Medical History No medical history recorded. Gynecological HistoryNo gynecological history recorded. Obstetrics History GPAL:G 0 P 0 0 0 0 Immunizations Vaccine Type Date Status Note Provider Nam e and Address Organization Details Recorded Time Influenza, split virus, quadrivalent, preservative 9 completed Not Available [facility] 07/10/2022 08:15:11 Influenza, split virus, trivalent, PF 3 completed Not Available [facility] 07/10/2022 08:15:11 Past Encounters Encounter ID Performer Location Encounter Start Date Encounter Closed Date Diagnosis/Indication Diagnosis SNOMED-CT Code Diagnosis ICD10 Code Diagnosis Note [id number] Haley Costa MD [facility] [address] [place] [address] 07/04/2022 00:00:00 07/08/2022 20:34:23 [id number] Haley Costa MD [facility] [place] [address] [place] [address] 07/03/2023 08:25:07 07/03/2023 09:08:19 Rib pain 865316821 R07.81 -Pt had a fall at work [...] Recorded Advance Directives Directive None Recorded Payers Insurance Date Sequence Insurance Name Policy Number Policy Bradford Covered Member ID Bradford Member ID Guarantor Name 09/16/2023 1 [facility] [id number] Marly Wills [id number] Marly Wills 07/03/2023 1 [facility] [id number] Marly Wills [id number] Marly Wills Notes Date Note Type Note Provider Name and Address Organization Details Recorded Time 07/03/2023 text/html Pt was recently in the ER for a fall at work JORGE LUIS Martinez-Deirdre [address], [place], [address], [facility] [employer] 09/16/2023 14:57:37 OBGyn Episode No OBEpisode recorded.
--- NOTE | 2024-11-17 06:44 | WPDHPUPDATE1 ---
History and Physical Update Update Date/Time: 11/17/24 06:44 History and Physical has been reviewed, including an updated exam of the patient. There are NO changes in the patient's condition. Risks, benefits, and alternatives have been discussed and questions answered. Patient agrees to proceed with procedure.
[2024-11-17 07:05] VITALS: BP 149/87; PULSE 65; RESP 16; TEMP 36.6; O2SAT 97
[2024-11-17] MEDS: ACETAMINOPHEN 500 MG TABLET 1000 MG PO (07:16)
[2024-11-17] MEDS: LACTATED RINGERS 1,000 ML 30 ML IV CONT (07:20)
--- NOTE | 2024-11-17 07:20 | WPDANESEPPF ---
Anes - Initial Pre Proc Eval Procedure: Operation Date: 11/17/24 07:30 Proposed Procedures p Release Left Third Trigger Finger - Michael Ramirez MD Date/Time: 11/17/24 07:20 Surgeon: Michael Ramirez MD Pre Op Diagnosis: left 3rd trigger finger Patient Data Age: 64 Gender: F Height: 1.6 m Weight: 70.5 kg Allergies Allergy/AdvReac Type Severity Reaction Status Date / Time No Known Allergies Allergy Unverified 11/17/24 07:13 Home Medications ?Medication ?Instructions ?Recorded ?Confirmed ?Type acetaminophen 500 mg tablet 1,000 mg (2 x 500 mg) PO TID PRN 05/03/24 11/10/24 Rx (Tylenol Extra Strength) pain #30 tabs ibuprofen 800 mg tablet 800 mg PO TID PRN pain #30 tabs 05/03/24 11/10/24 Rx ergocalciferol (vitamin D2) 1,250 1,250 mcg PO WEEKLY 05/11/24 11/17/24 History mcg (50,000 unit) capsule levetiracetam 750 mg tablet 1,500 mg PO Q12H 05/11/24 11/17/24 History mecobalamin (vitamin B12) 1,000 1,000 mcg PO DAILY 05/11/24 11/17/24 History mcg lozenges zonisamide 100 mg capsule 100 mg PO DAILY 05/11/24 11/17/24 History oxcarbazepine 300 mg tablet 300 mg PO BID 05/18/24 11/17/24 History Patient hx anesthesia problems: none Family hx anesthesia problems: none Results Review: All pre-operative results and documents have been reviewed as part of the pre-operative evaluation. 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, medicated Social History Social History Smoking status: Never smoker Alcohol intake: never Substance use: never Do You Feel Safe in your Home?: Yes Lack of Transportation: No Lack of Food: Never True Current Housing: I Have Housing Concerned About Future Housing: No Difficulty Paying Gas/Electric Bills: No Difficulty Paying for Meds: No Currently Unemployed: No Education: High School Diploma/GED Difficulty w/ Childcare or Family Care: No Living arrangements: with family Spiritual care concerns: No Anes - Eval Final PreProcedure Day of Procedure 11/17/24 07:20 Patient weight: overweight Heart: regular rate and rhythm Lungs: clear to auscultation Airway: Mallampati scale class II Neurological: alert and oriented Last oral intake: >/= 8 hours ASA classification: III Emergent: no Anesthetic plan: proceed Anesthesia type and monitoring: general GIVS and standard monitoring Results Review: All pre-operative results and documents have been reviewed as part of the pre-operative evaluation. Informed Consent: The patient's anesthetic plan and its attendant risks and benefits were discussed with the patient/family/POA. Questions were solicited and answers provided to the satisfaction of the patient/family/POA.
[2024-11-17] MEDS: KETOROLAC 15 MG/ML VIAL (*BKC) IV PUSH (07:22)
[2024-11-17] MEDS: ceFAZolin 2 GM in SODIUM CHLORIDE 0.9% IV 50 ML 100 ML IVPB (07:30)
[2024-11-17] MEDS: LIDOCAINE 1% LOCAL INJ 10 ML VIAL 5 ML INFILTRATE (07:30)
--- NOTE | 2024-11-17 08:05 | W.PM.PROC2 ---
Procedure Note - Detailed Date of Procedure 11/17/24 Pre-op Diagnosis Left 3rd trigger finger Post-op Diagnosis Same Procedure Performed Release A1 sarahy left 3rd finger Surgeon Michael Ramirez MD Anesthesia General Indications Catching and locking Description of Procedure Patient was brought to operating room #7. A general anesthetic and sedation were given. She was sterilely prepped and draped in usual manner. Local infiltrate placed along the line of intended incision inline with the distal palmar crease. The skin was incised in the distal thenar crease. The dissection was then bluntly carried down to the tendon. The tendon was found as was the A1 sarahy. The A1 sarahy was released under direct vision such that there was no longer any catching and the tendon moved freely. The wound irrigated hemostasis obtained and closed with 3-0 Prolene. Sterile dressing applied patient left the operating room in satisfactory condition. Estimated Blood Loss 1 Condition Stable Disposition PACU [facility] Billing Surgery - Charge Forward: Surgery Billing ([id number] Trigger Finger)
[2024-11-17 08:10] VITALS: BP 122/100; PULSE 96; RESP 16; O2SAT 98
[2024-11-17 08:40] VITALS: BP 131/70; PULSE 96; O2SAT 100
[2024-11-17 09:10] VITALS: BP 129/55; PULSE 65
== END 2024-11-17 09:34 | disposition home or self-care (01) ==
PROVIDERS: PCP Family Medicine; Visit Provider Orthopaedic Surgery
PROC: (CPT 26055; principal; 2024-11-17 07:30)
DX: M65.332 Trigger finger, left middle finger (principal); Z79.1 Long term (current) use of non-steroidal anti-inflammatories (NSAID); Z86.69 Personal history of other diseases of the nervous system and sense organs
CPT/HCPCS: 26055; J0690; A9270; J1100; J1200; J1885; J2003; J2250; J2405; J3010; J7120